=== PATIENT | male | born 1955 | race Caucasian/White ===

== ENCOUNTER 2017-11-13 09:21 | Observation (INO) | payer BC ==
[2017-11-13 10:17] LABS: #Eosinphils 0.1 thou/uL (0.0-0.7); #Lymphocytes 1.6 thou/uL (1.20-3.40); #Monocytes 0.6 thou/uL (0.11-0.59); #Neutrophils 4.3 thou/uL (1.40-6.50); %Basophils 0.7 % (0.0-1.0); %Eosinophils 1.6 % (0.0-10.0); %Lymphocytes 23.6 % (21.0-51.0); %Monocytes 8.6 % (0.0-10.0); %Neutrophils 65.6 % (42.0-75.0); Mean Corpuscular HGB CONC 36.3 g/dL (32.0-36.0); Mean Corpuscular Hemoglobin 31.3 pg (27.0-31.0); Mean Corpuscular Volume 86.2 fL (78.0-98.0); Mean Platelet Volume 7.1 fL (7.4-10.4); Platelet Count 191 thou/uL (130-400); RBC Distribution Width 12.2 % (11.5-14.5); Red Blood Cell (RBC) Count 5.11 mill/uL (4.70-6.10); White Blood Cell (WBC) Count 6.6 thou/uL (4.8-10.8)
[2017-11-13 10:25] LABS: INR-International Normal Ratio 1.1; Prothrombin Time 14.6 SEC (12.0-14.7)
[2017-11-13 10:29] LABS: ALT (SGPT) 31 U/L (8-55); AST (SGOT) 22 U/L (5-34); Albumin 4.3 g/dL (3.4-4.8); Alkaline Phosphatase 104 U/L (40-150); Anion Gap 10 mmol/L (10-20); BUN (Urea Nitrogen) 18 mg/dL (8.4-25.7); Calc. Creatinine Clearance 0 mL/min (70-130); Calcium 9.4 mg/dL (7.8-10.44); Carbon Dioxide 32 mmol/L (23-31); Chloride 103 mmol/L (98-107); Estimated GFR-MDRD 57; Globulin 2.5 g/dL (2.4-3.5); Glucose 117 mg/dL (80-115); Potassium 4.5 mmol/L (3.5-5.1); Protein, Total 6.8 g/dL (5.8-8.1); Sodium 140 mmol/L (136-145)
[2017-11-13 10:33] LABS: CKMB 3.1 ng/mL (0-6.6); Troponin I Less than 0.010 ng/mL (< 0.028)
--- NOTE | 2017-11-13 11:23 | RAD ---
PORTABLE CHEST: Date: 11/13/17 PROVIDED CLINICAL HISTORY: Chest pain. FINDINGS: No comparisons. Cardiac silhouette appears enlarged, which may be at least partially on the basis of portable techniq ue. No focal consolidation, pleural fluid, or pneumothorax apparent. Nonspecific lucency overlies the left scapula just inferior to the glenoid. This may be soft tissue in origin. Consider correlating w ith dedicated left shoulder radiographs. IMPRESSION: 1. No evidence for an acute cardiopulmonary process. 2. Nonspecific left scapular lucency. POS: [facility]
[2017-11-13] MEDS ORDERED: ISOVUE-370 76%-LOCM 1 ML ONE (12:23)
[2017-11-13] MEDS ORDERED: Bisacodyl 5 MG TAB PO PRN (12:38)
[2017-11-13] MEDS ORDERED: Acetaminophen 325 MG TAB PO PRN (12:38)
[2017-11-13 12:43] LABS: CKMB 2.8 ng/mL (0-6.6); Troponin I Less than 0.010 ng/mL (< 0.028)
--- NOTE | 2017-11-13 12:46 | CT ---
CT BRAIN WITHOUT CONTRAST CT ANGIOGRAM BRAIN WITH CONTRAST AND 3D MIP RECONSTRUCTIONS CT ANGIOGRAM NECK WITH IV CONTRAST AND 3D MIP RECONSTRUCTIONS: Date: 11/13/17 PROVIDED CLINICAL HISTORY: Dizziness. FINDINGS: No comparisons. The ventricular system appears normal in size and morphology. There is no evidence for intracranial h emorrhage or mass effect. The extracranial soft tissues and osseous structures demonstrate no acute a bnormality. There is no evidence for focal vessel stenosis, branch occlusion, or aneurysm involving intracranial circulation within the limitations of this technique. There is a normal three vessel configuration of the great vessels at the arch. There is approximately 40% narrowing involving the proximal right ICA due to noncalcified plaque. No additional stenosis is evident. The visualized lung apices appear clear. The osseous structures demonstrate no acute findings. IMPRESSION: 1. No evidence for intracranial hemorrhage or mass effect. 2. Normal CT angiogram of the brain. 3. 40% proximal right ICA stenosis. POS: [facility]
[2017-11-13] MEDS ORDERED: Aspirin 325 mg Enteric Coated Tablet PO SCH (13:00)
--- NOTE | 2017-11-13 14:12 | HP ---
PRIMARY CARE PROVIDER: Dr. Krista Dobbs, and her practice is in [place], [place]. CHIEF COMPLAINT: Dizziness. HISTORY OF PRESENT ILLNESS: Mr. Burns is a pleasant 62-year-old gentleman, who was seen at [facility] on 11/13/2017. He is visiting [facility]. He woke up around 3:00 a.m. to go to the bathroom and he was doing wel l at that time. Around 6:30 a.m., he woke up feeling dizzy, with a sensation of the ceiling spinning , accompanied by nausea. He denies any chest pain or vomiting. He sat on the bed, then shaved and s howered and tried to dress. He became diaphoretic. He reports that the dizziness was improved with closing his eyes and was worse with opening his eyes. He also had tingling of the left thumb and pre ssure under the left armpit. EMS was called and patient was airlifted to [facility]. By the time I saw Mr. Burns, most of the symptoms had resolved. REVIEW OF SYSTEMS: All other systems reviewed and found to be negative. 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 PAST SURGICAL HISTORY: Surgery for basal cell carcinoma, tonsillectomy, jaw repair surgery, left zia ulder surgery for dislocation, and left thumb surgery. FAMILY HISTORY: No family history of coronary artery disease. SOCIAL HISTORY: The patient denies tobacco use, alcohol use, or recreational drug use. ALLERGIES: No known drug allergies. CURRENT MEDICATIONS: Atorvastatin 20 mg daily, amlodipine/benazepril 5/20 mg daily. PHYSICAL EXAMINATION: GENERAL: Mr. Burns is awake and alert, not in acute distress. VITAL SIGNS: Blood pressure is 114/90, pulse 73, respiratory rate 17, temperature 98 degrees Fahrenh eit, and oxygen saturation 95% on 2 liters of oxygen. EYES: No scleral icterus. No conjunctival pallor. ENT: Moist mucosal membranes, no oropharyngeal erythema or exudates. NECK: Supple, nontender, normal range of movement. Trachea is midline. RESPIRATORY: Accessory muscles of breathing are not active. Chest wall movements are symmetric bila terally. LUNGS: Clear to auscultation without wheeze, rhonchi, or crepitations. CARDIOVASCULAR: S1 and S2 are heard, regular. Peripheral pulses palpable. No carotid bruit, no per icardial rub. ABDOMEN: Soft, nontender, bowel sounds heard, no hepatomegaly, no splenomegaly. NEUROLOGIC: Cranial nerves II-XII intact. Power is 5/5 in all 4 extremities. No focal motor or sen connor deficits. Deep tendon reflexes are 2+, plantar reflexes downgoing bilaterally. LYMPHATIC: No cervical lymphadenopathy. SKIN: No rashes or subcutaneous nodules. MUSCULOSKELETAL: Power is 5/5 in all 4 extremities. PSYCHIATRIC: Normal mood, normal affect, patient is oriented to person, place, and time. LABORATORY DATA: Mr. Burns's labs and investigations were reviewed. I reviewed his electrocardiogr am, which shows normal sinus rhythm, no ST changes to suggest an acute coronary syndrome. I also rev iewed his chest x-ray, which does not show any pulmonary infiltrates. He had a CT brain without cont rast, CT angiogram of the brain with contrast, and CT angiogram of the neck with contrast. There was no evidence of intracranial hemorrhage or mass effect. CT angiogram of the brain was normal. He blanco s 40% proximal right ICA stenosis. In terms of laboratory investigations, he has an unremarkable CBC, INR 1.1, and an unremarkable compr ehensive metabolic profile. Troponin I is negative x2. ASSESSMENT AND PLAN: Mr. Burns is a pleasant 62-year-old gentleman, who was seen at [facility] on 11/13/2017. His problem list includes: 1. Vertigo: The etiology is unclear. He will be admitted to the hospital for further investigation s and management. Differential diagnosis includes both central and peripheral causes, although perip heral causes are more favored. We will start him on a trial of meclizine. We will check MRI of brai n and a 2-D echocardiogram. We will consult Neurology. 2. Hypertension: Monitor vital signs, titrate antihypertensives as needed. 3. Dyslipidemia: Continue statin. 4. Diaphoresis: The patient reports that he was diaphoretic at home, but denies having any chest pa in. We will trend troponins. If he has any chest pain, we will consider stress test. Many thanks for allowing me to participate in your patient's care. Please feel free to contact me wi th any questions or concerns. LEVEL OF RISK: High. LEVEL OF COMPLEXITY: High.
[2017-11-13 14:27] VITALS: BMI 30.8
[2017-11-13] MEDS: Meclizine HCl 25 MG TAB PO SCH ×2 (15:03→20:36)
--- NOTE | 2017-11-13 15:05 | RAD ---
LEFT SHOULDER 3 VIEWS: Date: 11/13/17 HISTORY: 62-year-old male with follow-up scapular lucency on chest x-ray. COMPARISON: 11/13/17. FINDINGS: There are degenerative changes of the AC joint and glenohumeral joint. The previously noted lucency s een on the chest x-ray are not seen on this study and probably representing some type of artifact. IMPRESSION: Degenerative changes without fracture or dislocation. No evidence of bony destructive process. POS: [facility]
[2017-11-13 15:46] LABS: Troponin I Less than 0.010 ng/mL (< 0.028)
[2017-11-13 19:14] LABS: Troponin I Less than 0.010 ng/mL (< 0.028)
[2017-11-14 05:03] LABS: Anion Gap 10 mmol/L (10-20); BUN (Urea Nitrogen) 20 mg/dL (8.4-25.7); Calc. Creatinine Clearance 89 mL/min (70-130); Calcium 9.1 mg/dL (7.8-10.44); Carbon Dioxide 27 mmol/L (23-31); Cardiac Risk 4.4 (Less than 4.5); Chloride 105 mmol/L (98-107); Cholesterol 120 mg/dl (< 200 Desired); Estimated GFR-MDRD 62; Glucose 114 mg/dL (80-115); HDL Cholesterol 27 mg/dL (>60 Neg Risk); LDL Cholesterol, Calculated 40 mg/dL; Sodium 138 mmol/L (136-145); Triglycerides 265 mg/dL (Less than 150)
[2017-11-14 05:15] LABS: #Eosinphils 0.2 thou/uL (0.0-0.7); #Lymphocytes 2.4 thou/uL (1.20-3.40); #Monocytes 0.7 thou/uL (0.11-0.59); #Neutrophils 3.4 thou/uL (1.40-6.50); %Basophils 0.2 % (0.0-1.0); %Eosinophils 2.9 % (0.0-10.0); %Lymphocytes 35.6 % (21.0-51.0); %Monocytes 10.2 % (0.0-10.0); Hemoglobin 15.4 g/dL (14.0-18.0); Mean Corpuscular Hemoglobin 29.3 pg (27.0-31.0); Mean Corpuscular Volume 86.3 fL (78.0-98.0); Platelet Count 206 thou/uL (130-400); RBC Distribution Width 12.2 % (11.5-14.5); Red Blood Cell (RBC) Count 5.24 mill/uL (4.70-6.10); White Blood Cell (WBC) Count 6.6 thou/uL (4.8-10.8)
[2017-11-14] MEDS: Meclizine HCl 25 MG TAB PO SCH (07:24)
[2017-11-14] MEDS ORDERED: Aspirin 325 mg Enteric Coated Tablet PO SCH (09:00)
[2017-11-14] MEDS ORDERED: Enoxaparin Sodium 40 MG/0.4 ML SYRINGE SC SCH (09:00)
--- NOTE | 2017-11-14 12:12 | MRI ---
MRI BRAIN: Date: 11/14/17 PROVIDED CLINICAL HISTORY: Stroke. FINDINGS: The ventricular system appears normal in size and morphology. There is no evidence for intracranial h emorrhage or mass effect. No significant intracranial signal abnormality is evident. No evidence for restricted diffusion to suggest recent infarction. Appropriate flow-voids are seen within the major i ntracranial vessels. The extracranial soft tissues and calvarial marrow signal appear normal. IMPRESSION: No evidence for an acute intracranial abnormality. POS: [facility]
[2017-11-14 12:58] VITALS: BP 134/75; TEMP 97.9
--- NOTE | 2017-11-14 13:20 | CON ---
DATE OF CONSULTATION: 11/14/2017 NEUROLOGY CONSULTATION CONSULTING PHYSICIAN: Hospitalist Service. IMPRESSION: Acute vertigo which appears to be more likely peripheral in origin. PLAN: Review MRI of the brain with Radiology. Mr. Burns is a 62-year-old gentleman with a past history of oral cancer, status post radiation. He was in his normal state of health yesterday morning when he abruptly developed vertigo. This was ass ociated with some nausea. His symptoms went on for several hours, lasting approximately 6 hours tota l. There was some associated tingling in the left arm and a feeling of pressure in the left armpit, everything resolved yesterday afternoon. He came in to the emergency room and had a normal CT angiog berto and CT of the brain. He has had an MRI of the brain this morning, which I reviewed and I do not see any evidence of any acute ischemic changes. He is feeling fine now. He denies any associated ti nnitus or hearing loss. He has had some mild vertigo in the past, but nothing is intense as that occ urred yesterday. He denies any recent illness or injury. PAST MEDICAL HISTORY: Oral cancer. ALLERGIES: As per chart. SOCIAL HISTORY: No tobacco or alcohol use. FAMILY HISTORY: Noncontributory. MEDICATION LIST: Reviewed. REVIEW OF SYSTEMS: No chest pain, shortness of breath, lateralized weakness or numbness, no headache , hearing loss, or difficulty swallowing. PHYSICAL EXAMINATION: GENERAL: He is a healthy appearing middle-aged man in no distress. VITAL SIGNS: Blood pressure 134/76, pulse 64, respirations 16, temperature 97.4. HEENT: Pupils equal and reactive. Conjunctivae are clear. Oropharynx clear, no nystagmus noted. NECK: Supple. EXTREMITIES: No cyanosis. NEUROLOGIC: He is alert and appropriate. Speech is fluent and clear. His exam is nonfocal. SUMMARY: A middle-aged gentleman with acute onset of vertigo and some subjective tingling in the lef t arm. I do not see anything on his exam or an MRI is likely peripheral in origin. He will be disch arged home if his MRI is read as normal.
--- NOTE | 2017-11-14 17:54 | DIS ---
DATE OF ADMISSION: 11/13/2017 DATE OF DISCHARGE 11/14/2017. PRIMARY CARE PROVIDER: Dr. Krista Dobbs, in [place], [place]. DISCHARGE DIAGNOSES: 1. Transient ischemic attack. 2. Dyslipidemia. CONDITION OF PATIENT ON THE DAY OF DISCHARGE: Stable. I assessed Mr. Burns on the day of discharge . He denies any chest pain or shortness of breath. He denies any dizziness. Vital signs are stable. S1 and S2 are heard, regular. Lungs are clear to auscultation bilaterally. DISCHARGE MEDICATIONS: Amlodipine/benazepril 5/20 mg daily, aspirin 325 mg daily, and atorvastatin 2 0 mg daily. CONSULTATIONS DURING THIS HOSPITALIZATION: Neurology, Dr. Zambrano. HOSPITAL COURSE: Mr. Burns is a pleasant 62-year-old gentleman who was admitted to [facility] following an episode of vertigo, left upper extremity tingling and diaphoresis. He did not have any chest pain. He had normal troponins. MRI of the brain was unremarkable. He also had a 2D echocardiogram, report is pending at the time of discharge. He is advised to follow up with his primary care provider for 2D echocardiogram report. He was seen by Neurology Service and has been cleared for discharge. Triglycerides during this hospitalization were 265, cholesterol 120, LDL cholesterol 40, and HDL chol esterol 27. On the day of discharge, he had a normal basic metabolic profile, normal white count, no rmal hemoglobin and normal platelet count. I had started him on meclizine for vertigo, but did not receive any doses during this hospitalization . His vertigo, resolved spontaneously on the day of admission. Many thanks for allowing me to participate in your patient's care. Please feel free to contact me wi th any questions or concerns. DISCHARGE DESTINATION: Home.
== END 2017-11-14 13:09 | disposition home or self-care (01) ==
LOC: ERS 09:21 → 2SE 13:53
PROVIDERS: ADMIT Internal Medicine; ATTEND Internal Medicine
DX: G45.9 Transient cerebral ischemic attack, unspecified (principal); E78.5 Hyperlipidemia, unspecified; I10 Essential (primary) hypertension; R61 Generalized hyperhidrosis; Z79.82 Long term (current) use of aspirin; Z79.899 Other long term (current) drug therapy
CPT/HCPCS: 36415; 70496; 70498; 70551; 71045; 80048; 80053; 80061; 82553; 84484; 85025; 85610; 93005; 93306; 94760; G0378; G8978-GP-CL; G8979-GP-CL; G8980-GP-CL; G8996-GN-CJ; G8997-GN-CJ; J1650